=== PATIENT | female | born 1980 | race African-American/Black ===

== ENCOUNTER 2019-04-23 17:21 | Emergency (ER) | payer OTHER ==
[~2019-04-23] VITALS: Ht 149.9 cm; Wt 70.3 kg
[2019-04-23] MEDS ORDERED: PROBIOTIC1 EAC7 PO (17:30)
[2019-04-23] MEDS ORDERED: WOMEN'S MULTI200 MCG PO (17:31)
[2019-04-23] MEDS ORDERED: VITAMIN C1000 MG PO (17:31)
[2019-04-23] MEDS ORDERED: CINNAMON500 MG PO (17:31)
[2019-04-23] MEDS ORDERED: KEFLEX500 M1 PO (17:50)
[2019-04-23 18:25] VITALS: BP 131/83
== END 2019-04-23 18:25 | disposition home or self-care (01) ==
LOC: ER 17:21
DX: S40.862A Insect bite (nonvenomous) of left upper arm, initial encounter (principal); S40.861A Insect bite (nonvenomous) of right upper arm, initial encounter; L03.113 Cellulitis of right upper limb; L03.114 Cellulitis of left upper limb; W57.XXXA Bitten or stung by nonvenomous insect and other nonvenomous arthropods, initial encounter; Y92.89 Other specified places as the place of occurrence of the external cause; Y93.89 Activity, other specified; Y99.8 Other external cause status